=== PATIENT | male | born 2000 | race Caucasian/White ===

== ENCOUNTER 2021-11-16 21:36 | Emergency (ER) | payer BC, SELFPAY ==
[2021-11-16 21:48] VITALS: BP 128/84; PULSE 86; RESP 16; TEMP 37; O2SAT 97
--- NOTE | 2021-11-16 22:08 | CRLHL7_ITS ---
For Patients: As a result of the Century Cures Act, medical imaging exams and procedure reports are released immediately into your electronic medical record. You may view this report before your referring provider. If you have questions, please contact your health care provider. INDICATION: Inguinal pain. TECHNIQUE: CT abdomen and pelvis acquired with 68 cc Isovue 370 IV contrast. COMPARISON: None. FINDINGS: Lower chest: Unremarkable. Liver: Unremarkable. Normal in size and attenuation. No suspicious masses. Gallbladder and bile ducts: Unremarkable. No stones or inflammation. No biliary dilatation. Pancreas: Unremarkable. No mass or inflammation. Spleen: Unremarkable. Normal in size. No masses. Adrenal glands: Unremarkable. No nodules. Kidneys: Unremarkable. No suspicious masses, stones, or hydronephrosis. GI tract: Tubular densities are identified within the stomach some containing foci of air. Correlate with recent ingestion. Normal in caliber. No sign of mass or inflammation. Normal appendix. Vasculature: Abdominal aorta is normal in caliber. Mesenteric arteries are patent. Lymph nodes: No lymphadenopathy. Peritoneum/Abdominal Wall: Unremarkable. No sign of mass or infiltration. No free air or significant free fluid. Pelvis: Circumferential bladder wall thickening and mild enhancement, may be related to cystitis or incomplete distention. Bones: Unremarkable for age. IMPRESSION: Bladder wall thickening, may be seen in the setting of cystitis or incomplete distention. Correlate with UA. Tubular densities within the stomach some containing foci of air, correlate with recent ingestion. Please note that all CT scans at this facility use dose modulation, iterative reconstruction, and/or weight-based dosing when appropriate to reduce radiation dose to as low as reasonably achievable. Dictated by Casandra Mohamud MD @ 11/16/2021 11:37:09 PM (Electronically Signed)
--- NOTE | 2021-11-16 22:09 | ED.GENADULT ---
HPI - General Adult General Chief complaint: Groin Pain Stated complaint: Groin pain Time Seen by Provider: 11/16/21 21:39 History of Present Illness HPI narrative: This 21-year-old male comes in reporting some pain in the left inguinal region over the past week or so. He was seen twice before in urgent care in in clinic. He did have a urinalysis done which showed no sign of infection. He has not had any encounters that would be suspicious for sexually transmitted disease. He states that he was tested for these more than a month ago with negative results. He does not report any fever or dysuria. He does not have any flank pain. Related Data Home Medications Medication Instructions Recorded Confirmed sertraline 50 mg tablet mg 11/16/21 Allergies Allergy/AdvReac Type Severity Reaction Status Date / Time No Known Drug Allergies Allergy Verified 11/16/21 21:53 Review of Systems Status of ROS: Reports: 10 or more systems reviewed and unremarkable except as noted in History and below Narrative: Constitutional: No fevers, no weight gain or loss. Eyes: No discharge. No vision changes. HENT: No congestion, no sore throat, no ear pain. Cardiovascular: No chest pain, no palpitations. Respiratory: No shortness of breath, no wheezes, no cough. Gastrointestinal: No vomiting, no diarrhea. Left lower quadrant abdominal pain in the inguinal region. Genitourinary: No dysuria, no hematuria. Musculoskeletal: Normal range of motion. Skin: No rashes, no pruritis. Neurological: No dizziness, weakness, sensory change, speech change. Endo/Heme/Allergies: No bruising or bleeding. No polydipsia. Pysch: no suicidality, no anxiety, no insomnia. All other systems reviewed and are negative. PFSH PFSH Social History Smoking Status: Never smoker Do you use any of these nicotine containing products: None How often do you have a drink containing alcohol: never AUDIT-C Alcohol total score: 0 Non-prescribed substance use: denies use Exam Narrative: Exam Narrative: Constitutional: Well-developed, well-nourished, no acute distress. HEENT: Normocephalic, atraumatic. Neck: Normal range of motion. Nontender. Supple. Heart: Regular. No murmurs. Normal rate. Intact distal pulses. Lungs: Clear to auscultation. No chest discomfort. No wheezes, rhonchi, or rales. Abdomen: Normal bowel sounds. Mild tenderness in the left lower quadrant. There is a palpable tender lymph node in the inguinal region that is not concerning for pathology.. No rebound tenderness. Genitalia: Deferred. Back: No midline tenderness. Normal range of motion. Extremities: Normal range of motion. No injury. Skin: Intact. No rash. Warm. No erythema or pallor. Neurologic: No altered sensation. No weakness. Alert and oriented. Psychiatric: No suicidality. No anxiety or depression. No insomnia. Nursing notes and vitals signs are reviewed. Const: Vital Signs, click to edit/add: Vital Signs - 24 hr 11/16/21 21:48 Temperature 98.6 F Pulse Rate [Right Pulse Oximeter] 86 Respiratory Rate 16 Blood Pressure [Le ft Upper Arm] 128/84 Pulse Oximetry 97 Oxygen Delivery Me thod Room Air Course Vital Signs Vital signs: Initial Vital Signs Temperature 98.6 F 11/16/21 21:48 Temperature Source Temporal Artery Scan 11/16/21 21:48 Pulse Rate 86 11/16/21 21:48 Pulse Rhythm 11/16/21 21:48 Respiratory Rate 16 11/16/21 21:48 Blood Pressure 128/84 11/16/21 21:48 Blood Pressure Mean 98 11/16/21 21:48 Pulse Oximetry 97 11/16/21 21:48 Oxygen Delivery Method 11/16/21 21:48 Vital Signs Temperature 98.6 F 11/16/21 21:48 Pulse Rate 86 11/16/21 21:48 Respiratory Rate 16 11/16/21 21:48 Blood Pressure 128/84 11/16/21 21:48 Pulse Oximetry 97 11/16/21 21:48 Oxygen Delivery Method 11/16/21 21:48 Temperature 98.6 F 11/16/21 21:48 Pulse Rate 86 11/16/21 21:48 Respiratory Rate 16 11/16/21 21:48 Blood Pressure 128/84 11/16/21 21:48 Pulse Oximetry 97 11/16/21 21:48 Oxygen Delivery Method 11/16/21 21:48 Medical Decision Making MDM Narrative Medical decision making narrative: This patient has some abdominal pain as described above. He has been evaluated for this a few times in the past week but has not had any imaging done. He is worried about something causing this pain. I did have an IV placed and checked labs and imaging with CT scan. These all returned with normal findings. The patient does not have any symptoms of dysuria a. He is reassured with these findings. He is okay to return home and continue current plans with activity as tolerated. He did receive a prescription for some tablets of Toradol. Lab Data Labs: Lab Results 11/16/21 11/16/21 Range/Units 22:15 22:15 WBC 7.26 (4.50-11.00) K/uL RBC 4.97 (4.30-5.90) m/uL Hgb 15.1 (13.5-17.5) gm/dL Hct 43.2 (37.0-53.0) % MCV 87 (80-100) fL MCH 30 (26-34) pg MCHC 35 (32-36) gm/dL RDW Coeff of Miguel Angel 11.7 (11.5-15.5) % Plt Count 253 (140-440) K/uL Neut % (Auto) 60.4 (42.0-72.0) % Lymph % (Auto) 31.7 (20-44) % [place] % (Auto) 6.1 (0.0-11.0) % Eos % (Auto) 1.2 (0.0-7.0) % Baso % (Auto) 0.3 (0.0-3.0) % Neut # (Auto) 4.39 (1.7-7.0) K/uL Lymph # (Auto) 2.30 (0.90-2.90) K/uL [place] # (Auto) 0.40 (0.00-0.90) K/UL Eos # (Auto) 0.09 (0.00-0.50) K/uL Baso # (Auto) 0.02 (0.00-0.30) K/uL Abs Immat Gran (auto) 0.02 (0.00-0.30) K/uL Sodium 139 (135-149) mmol/L Potassium 3.6 (3.6-5.1) mmol/L Chloride 99 (96-114) mmol/L Carbon Dioxide 28 (20-32) mmol/L BUN 12 (5-24) mg/dL Creatinine 0.9 (0.5-1.5) mg/dL Estimated GFR 124 ml/min Glucose 102 (60-115) mg/dL Calcium 9.7 (8.4-10.6) mg/dL Imaging Data CT scan - abdomen: Radiologist's impression: FINDINGS: Lower chest: Unremarkable. Liver: Unremarkable. Normal in size and attenuation. No suspicious masses. Gallbladder and bile ducts: Unremarkable. No stones or inflammation. No biliary dilatation. Pancreas: Unremarkable. No mass or inflammation. Spleen: Unremarkable. Normal in size. No masses. Adrenal glands: Unremarkable. No nodules. Kidneys: Unremarkable. No suspicious masses, stones, or hydronephrosis. GI tract: Tubular densities are identified within the stomach some containing foci of air. Correlate with recent ingestion. Normal in caliber. No sign of mass or inflammation. Normal appendix. Vasculature: Abdominal aorta is normal in caliber. Mesenteric arteries are patent. Lymph nodes: No lymphadenopathy. Peritoneum/Abdominal Wall: Unremarkable. No sign of mass or infiltration. No free air or significant free fluid. Pelvis: Circumferential bladder wall thickening and mild enhancement, may be related to cystitis or incomplete distention. Bones: Unremarkable for age. IMPRESSION: Bladder wall thickening, may be seen in the setting of cystitis or incomplete distention. Correlate with UA. Tubular densities within the stomach some containing foci of air, correlate with recent ingestion. Discharge Plan Discharge Clinical Impression: Abdominal pain Patient Disposition: Home, Self-Care Condition: Stable Instructions: Abdominal Pain (ED) Additional Instructions: Take medication as needed and indicated. Follow up with MD or return if worsening. Prescriptions: No Action sertraline 50 mg tablet Follow Up/Referrals: Adam Minor MD [Staff Physician] - Stand Alone Forms: [employer] Info Instructions
[2021-11-16 22:36] LABS: Chloride* 99 mmol/L (96-114); Sodium* 139 mmol/L (135-149)
[2021-11-16 22:37] LABS: Potassium* 3.6 mmol/L (3.6-5.1)
[2021-11-16 22:39] LABS: Creatinine* 0.9 mg/dL (0.5-1.5); Estimated Glomerular Filt Rate 124 ml/min
[2021-11-16 22:40] LABS: Blood Urea Nitrogen* 12 mg/dL (5-24); Calcium* 9.7 mg/dL (8.4-10.6); Carbon Dioxide* 28 mmol/L (20-32); Glucose* 102 mg/dL (60-115)
[2021-11-16 22:44] LABS: Basophils Absolute Auto 0.02 K/uL (0.00-0.30); Basophils Percent Auto 0.3 % (0.0-3.0); Eosinophils Absolute Auto 0.09 K/uL (0.00-0.50); Eosinophils Percent Auto 1.2 % (0.0-7.0); Hematocrit 43.2 % (37.0-53.0); Hemoglobin* 15.1 gm/dL (13.5-17.5); Immature Granulocytes Abs Auto 0.02 K/uL (0.00-0.30); Lymphocytes Percent Auto 31.7 % (20-44); Mean Corpuscular HGB Conc 35 gm/dL (32-36); Mean Corpuscular Hemoglobin 30 pg (26-34); Mean Corpuscular Volume 87 fL (80-100); Monocytes Percent Auto 6.1 % (0.0-11.0); Neutrophils Absolute Auto 4.39 K/uL (1.7-7.0); Neutrophils Percent Auto 60.4 % (42.0-72.0); Platelet Count* 253 K/uL (140-440); RDW Coefficient of Variation % 11.7 % (11.5-15.5); Red Blood Count 4.97 m/uL (4.30-5.90); White Blood Count* 7.26 K/uL (4.50-11.00)
[2021-11-16 22:45] LABS: Slide Review Reflex No
[2021-11-16 23:54] VITALS: BP 121/65; PULSE 76; RESP 16; O2SAT 99
== END 2021-11-16 23:55 | disposition home or self-care (01) ==
PROVIDERS: Emergency Provider Emergency Medicine Emergency Medical Services; PCP Family Medicine
DX: R10.30 Lower abdominal pain, unspecified (principal)
CPT/HCPCS: 36415; 74177; 80048; 85025; 99284; Q9967

== ENCOUNTER 2022-07-18 23:57 | Emergency (ER) | payer BC, SELFPAY ==
[2022-07-19 00:04] VITALS: BP 153/98; PULSE 77; RESP 18; TEMP 36.7; O2SAT 100; BMI 25.0
[2022-07-19 00:47] VITALS: BP 141/87; PULSE 73; RESP 18; TEMP 36.7; O2SAT 100
--- NOTE | 2022-07-19 00:47 | ED.NURSE ---
monitoring pt on environmental monitoring specialist shows NSR 70-80 HR, no pvc noted.
--- NOTE | 2022-07-19 00:49 | ED.GENADULT ---
HPI - General Adult General Date Seen: 07/19/22 Chief complaint: Arrhythmia/Palpitations Stated complaint: Heart palpitations Time Seen by Provider: 07/19/22 00:03 Source: patient Mode of arrival: ambulatory Limitations: no limitations History of Present Illness HPI narrative: Patient is a 22-year-old male with a history of anxiety who presents for evaluation of palpitations which have been ongoing for the past several days. He was seen in clinic earlier today and had a normal EKG. Symptoms were thought possibly due to PVCs with a component of anxiety. He does have an appointment next week with Estela Frias to discuss anxiety management. He has previously been on sertraline but did not tolerate due to side effects. He notes for the past several days he has had a sensation of heightened awareness of his heart beating. The he has occasionally felt a little bit of a fluttering sensation, and says when he went to bed tonight this sensation of feeling like his heart was pounding just would not go way. He says he has not slept the past couple of nights because the sensation is so prominent and it keeps him awake. He has checked his pulse when he is feeling very symptomatic and it has never been fast. He does have a sensation like someone is squeezing his heart. He has not had any lightheadedness or syncope. He started a new supplement a couple of weeks ago which he has since discontinued. This apparently was a weight gain product, tolerated to allow you to build muscle while cutting calories. He does use a stimulant type product before he goes to the gym daily, he says he has used this for quite some time. He has a cup of coffee in the mornings. He denies any substance use otherwise. He says he does not drink. His health is otherwise good. He does not smoke. Related Data Home Medications Medication Instructions Recorded Confirmed sertraline 50 mg tablet mg 11/16/21 Allergies Allergy/AdvReac Type Severity Reaction Status Date / Time No Known Drug Allergies Allergy Verified 11/16/21 21:53 Review of Systems Status of ROS: Reports: 10 or more systems reviewed and unremarkable except as noted in History and below [facility] Social History Smoking Status: Never smoker Do you use any of these nicotine containing products: None How often do you have a drink containing alcohol: never AUDIT-C Alcohol total score: 0 Non-prescribed substance use: denies use Exam Narrative: Exam Narrative: Vital signs as noted above. In general, an alert, well-appearing patient. Head: Normocephalic, atraumatic. Eyes: Pupils are equal reactive. Extraocular movements are full. Conjunctivae are normal. ENT: Mucous membranes are moist. Throat is normal. Neck: Supple without lymphadenopathy. Heart: Regular rate and rhythm. No murmur or rub. Lungs: Clear bilaterally. No increased work of breathing, crackles or wheezes. Abdomen: Soft and nontender. No organomegaly. Extremities: Well perfused. No edema. No calf tenderness. Pulses intact. Neurologic: Patient is alert and oriented to person and place. Speech is fluent. Face is symmetric. Moves all extremities equally. Affect: Normal. Skin: Warm and dry. Well perfused. Const: Vital Signs, click to edit/add: Vital Signs - 24 hr 07/19/22 00:04 07/19/22 00:47 Temperature 98.1 F 98.1 F Pulse Rate [Left P ulse Oximeter] 77 73 Respiratory Rate 18 18 Blood Pressure [Le ft Upper Arm] 153/98 H 141/87 H Pulse Oximetry 100 100 Oxygen Delivery Me thod Room Air Room Air Documenting provider has reviewed patient's vital signs: yes Course Course Hospital Course: We did an EKG here, and he was on the monitor while I was talking with him. He has remained in a normal sinus rhythm, ventricular rate on his EKG was 72. He has a normal QT corrected of 407 milliseconds. He does not show delta waves. [place] is normal at 170 milliseconds. We discussed doing blood work, but he does not feel that he needs that, and I would agree that I think the likelihood of finding anything abnormal is low. I suspect that his symptoms are largely anxiety related. He agrees that there is likely a strong component of anxiety. It is certainly possible he might be having some PVCs although I did not see any while he was on the monitor here. We did discuss PVCs and their benign nature. We also discussed anxiety and somatic symptoms at length. We also discussed his supplement use. Overall, I think he would benefit from medication to help control his anxiety symptoms, though we discussed that any kind of stimulant right now is probably going to worsen his somatic symptoms. I have encouraged him to follow up in clinic as planned next week to discuss anxiety management. In the short term, I am providing him with a small number of Ativan to be use in particular at night if symptoms are prevented him from sleep. Discussed that if he has severe symptoms, has a pulse greater than 140, fainting, or other significant changes, he should be seen again right away. Vital Signs Vital signs: Initial Vital Signs Temperature 98.1 F 07/19/22 00:04 Temperature Source Temporal Artery Scan 07/19/22 00:04 Pulse Rate 77 07/19/22 00:04 Respiratory Rate 18 07/19/22 00:04 Blood Pressure 153/98 H 07/19/22 00:04 Blood Pressure Mean 116 07/19/22 00:04 Blood Pressure Position Sitting 07/19/22 00:04 Pulse Oximetry 100 07/19/22 00:04 Oxygen Delivery Method Room Air 07/19/22 00:04 Vital Signs Temperature 98.1 F 07/19/22 00:04 Pulse Rate 77 07/19/22 00:04 Respiratory Rate 18 07/19/22 00:04 Blood Pressure 153/98 H 07/19/22 00:04 Pulse Oximetry 100 07/19/22 00:04 Oxygen Delivery Method Room Air 07/19/22 00:04 Temperature 98.1 F 07/19/22 00:47 Pulse Rate 73 07/19/22 00:47 Respiratory Rate 18 07/19/22 00:47 Blood Pressure 141/87 H 07/19/22 00:47 Pulse Oximetry 100 07/19/22 00:47 Oxygen Delivery Method Room Air 07/19/22 00:47 Discharge Plan Discharge Clinical Impression: Palpitations, Anxiety Patient Disposition: Home, Self-Care Condition: Improved Instructions: Heart Palpitations (DC), Anxiety (ED) Additional Instructions: Ativan if needed, particularly at nighttime, for symptoms of anxiety. This is a short-term solution, please follow-up as planned in clinic to discuss further management of anxiety. Your EKG tonight is completely normal, and I do not have any reason to suspect a problem with your heart. If you have severe symptoms such as fainting, or your pulse is above 140 beats per minute, return to the emergency department. Prescriptions: No Action sertraline 50 mg tablet Follow Up/Referrals: Tashia Delgado DO [Staff Physician] - Stand Alone Forms: [facility] Info Instructions
== END 2022-07-19 00:48 | disposition home or self-care (01) ==
LOC: ED 07-19 00:40
PROVIDERS: Emergency Provider Emergency Medicine; PCP Physician Assistant
DX: R00.2 Palpitations (principal); F41.9 Anxiety disorder, unspecified
CPT/HCPCS: 99284